=== PATIENT | male | born 1965 ===

== ENCOUNTER 2019-11-23 10:55 | Emergency (ER) | payer OTHER ==
[~2019-11-23] VITALS: Ht 177.8 cm; Wt 83.9 kg
== END 2019-11-23 14:11 | disposition home or self-care (01) ==
LOC: ER 10:55
DX: B33.8 Other specified viral diseases (principal); Z03.818 Encounter for observation for suspected exposure to other biological agents ruled out; R50.9 Fever, unspecified; R53.81 Other malaise; R53.1 Weakness; M25.50 Pain in unspecified joint